=== PATIENT | female | born 1970 | race Caucasian/White ===

== ENCOUNTER 2018-04-21 14:43 | Emergency (ER) | payer OTHER ==
[~2018-04-21] VITALS: Ht 157.5 cm; Wt 117.9 kg
[~2018-04-21 14:43] MED LIST: BIRTH CONTROLL; MELATONIN10 M2 PO; PROTONIX40 M1 PO
[2018-04-21 15:11] LABS: ABSOLUTE BASOPHILS 0.1 thou/uL (0.0-0.2); ABSOLUTE EOSINOPHILS 0.2 thou/uL (0.0-0.7); ABSOLUTE LYMPHOCYTES 2.3 thou/uL (0.8-5.3); ABSOLUTE MONOCYTES 0.7 thou/uL (0.0-1.2); ABSOLUTE NEUTROPHILS 4.7 thou/uL (1.6-8.1); BASOPHILS 0.8 %; HEMATOCRIT 39.8 % (37.0-47.0); HEMOGLOBIN 13.4 gm/dL (12.0-15.0); LYMPHOCYTES 29.1 %; MCH 29.6 pg (26.0-34.0); MCHC 33.8 g/dL (28.0-37.0); MCV 87.7 fL (80.0-100.0); MONOCYTES 8.7 %; MPV 8.9 fl. (7.2-11.1); NUCLEATED RBCS 0 /100WBC; PLATELET COUNT* 309 thou/uL (150-400); POLYS 58.4 %; RBC 4.53 mil/uL (4.20-5.00); RDW-CV 13.5 % (10.5-14.5)
[2018-04-21 15:14] LABS: ANION GAP 6 mmol/L (7-16); BUN 16 mg/dL (7-18); CALCIUM 8.6 mg/dL (8.5-10.1); CHLORIDE 105 mmol/L (98-107); CO2 26 mmol/L (21-32); CREATININE 0.8 mg/dL (0.6-1.3); GLUCOSE 88 mg/dL (70-99); POTASSIUM 3.9 mmol/L (3.5-5.1); SODIUM 137 mmol/L (136-145)
[2018-04-21] MEDS ORDERED: CYMBALTA30 MG PO (15:18)
[2018-04-21] MEDS ORDERED: XANAX 0.25 MG0.25 MG PO (15:18)
[2018-04-21] MEDS ORDERED: MELOXICAM7.5 MG PO (15:18)
[2018-04-21] MEDS ORDERED: BLISOVI FE 1.51 EACH PO (15:19)
[2018-04-21 15:25] LABS: ALBUMIN 3.4 g/dL (3.4-5.0); ALKALINE PHOSPHATASE 87 U/L (46-116); LIPASE 94 U/L (73-393); NT-PRO BRAIN NAT PEPTIDE 311 pg/mL (<300); SGOT 18 U/L (15-37); SGPT 30 U/L (30-65); TOTAL BILIRUBIN 0.3 mg/dL (<0.1-1.0); TROPONIN-I LEVEL <0.06 ng/mL (<0.06)
[2018-04-21 16:11] LABS: URINE BILIRUBIN NEGATIVE (Negative); URINE BLOOD NEGATIVE (Negative); URINE CLARITY CLEAR; URINE COLOR YELLOW; URINE GLUCOSE-RANDOM NEGATIVE (Negative); URINE KETONES TRACE (Negative); URINE LEUKOCYTES-REFLEX NEGATIVE (Negative); URINE NITRITE-REFLEX NEGATIVE (Negative); URINE PROTEIN NEGATIVE (Negative); URINE SPECIFIC GRAVITY 1.025 (1.005-1.030); URINE UROBILINOGEN 0.2 E.U./dl (0.2-1.0)
[2018-04-21] MEDS ORDERED: HYDROCHLOROTH12.5 M2 PO (16:25)
[2018-04-21 17:26] VITALS: BP 175/93
--- NOTE | 2018-04-22 09:23 | EKG ---
[place] [address] ELECTROCARDIOGRAM REPORT Name: GLORIA NEWSOME V 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
== END 2018-04-21 17:27 | disposition home or self-care (01) ==
LOC: M.ERS 14:43
PROVIDERS: Emergency Medicine Emergency Medical Services
DX: I10 Essential (primary) hypertension (principal); R07.89 Other chest pain; G62.9 Polyneuropathy, unspecified; Z88.0 Allergy status to penicillin; Z88.5 Allergy status to narcotic agent; Z88.1 Allergy status to other antibiotic agents

== ENCOUNTER → 2020-05-19 | Outpatient (CLI) | payer OTHER ==
[~2020-05-19] MED LIST changes: +BLISOVI FE 1.51 EACH PO; +CYMBALTA30 MG PO; +HYDROCHLOROTH12.5 M2 PO; +MELOXICAM7.5 MG PO; +XANAX 0.25 MG0.25 MG PO
== END ==
LOC: M.CT 07:59
PROVIDERS: ATTEND Internal Medicine Cardiovascular Disease
DX: Z13.6 Encounter for screening for cardiovascular disorders (principal)